=== PATIENT | male | born 1955 | race Caucasian/White ===

== ENCOUNTER 2018-06-17 15:20 | Emergency (ER) | payer MEDICARE, MEDICAID ==
[~2018-06-17] VITALS: Ht 175.3 cm; Wt 122.5 kg
[~2018-06-17 15:20] MED LIST: HYDR25TA4; SIMV-8
[2018-06-17] MEDS ORDERED: LIDOCAINE 2% (LOCAL ANESTH.) PF 5ml SDV ONE (16:53)
[2018-06-17] MEDS ORDERED: NEOMYCIN-BACITRACIN-POLYM UNITDOSE PKG TOP OINT TOP ONE (17:00)
[2018-06-17] MEDS ORDERED: LIDOCAINE W/ EPINEPHRINE 2% INJ 20ML VIAL ID ONE (17:00)
[2018-06-17] MEDS ORDERED: LIDOCAINE 2% (LOCAL ANESTH.) PF 5ml SDV ID ONE (17:00)
[2018-06-17 17:56] VITALS: BP 140/90
== END 2018-06-17 17:57 | disposition home or self-care (01) ==
LOC: EDBD 15:20 → ER 15:20
DX: S81.812A Laceration without foreign body, left lower leg, initial encounter (principal); J45.909 Unspecified asthma, uncomplicated; I11.0 Hypertensive heart disease with heart failure; I50.9 Heart failure, unspecified; E78.5 Hyperlipidemia, unspecified; E11.9 Type 2 diabetes mellitus without complications; F17.210 Nicotine dependence, cigarettes, uncomplicated; Z79.899 Other long term (current) drug therapy; W25.XXXA Contact with sharp glass, initial encounter; Y93.89 Activity, other specified; Y99.8 Other external cause status; Y92.89 Other specified places as the place of occurrence of the external cause
CPT/HCPCS: 12002; 73590; J2001

== ENCOUNTER 2020-06-05 12:53 | Emergency (ER) | payer OTHER, MEDICAID ==
[~2020-06-05] VITALS: Ht 175.3 cm; Wt 104.3 kg
[2020-06-05 13:06] VITALS: BP 138/87
== END 2020-06-05 14:41 | disposition home or self-care (01) ==
LOC: ER 12:53
DX: S60.420A Blister (nonthermal) of right index finger, initial encounter (principal); L02.511 Cutaneous abscess of right hand; X50.1XXA Overexertion from prolonged static or awkward postures, initial encounter; Y93.89 Activity, other specified; Y92.89 Other specified places as the place of occurrence of the external cause; Y99.8 Other external cause status
CPT/HCPCS: 10060